=== PATIENT | male | born 1950 | race Caucasian/White ===

== ENCOUNTER 2018-09-04 21:18 | Emergency (ER) | payer MEDICARE, BC ==
[~2018-09-04] VITALS: Ht 170.2 cm; Wt 93.0 kg
--- OUTSIDE RECORDS SUMMARY | 2018-09-04 21:22 | XMS ---
PreManage Notification: DONALD GUALLPA [employer] Events No recent Security Events currently on file CRITERIA MET - [facility] There are no care providers on record at this time. Madai has no Care Guidelines for this patient. Dhara VISIT COUNT (12 MO.) 1 JANETT Hoskins TOTAL 1 NOTE: Visits indicate total known visits. ED/C VISIT TRACKING (12 MO.) 09/04/2018 21:20 JANETT Kramer OR TYPE: Emergency COMPLAINT: - LEFT KNEE PAIN/INJURY INPATIENT VISIT TRACKING (12 MO.) No inpatient visits to display in this time frame [id number]
== END 2018-09-04 23:06 | disposition home or self-care (01) ==
LOC: ED 21:18
DX: S83.92XA Sprain of unspecified site of left knee, initial encounter (principal); Z90.49 Acquired absence of other specified parts of digestive tract; Z88.5 Allergy status to narcotic agent; Z88.6 Allergy status to analgesic agent; W50.2XXA Accidental twist by another person, initial encounter
CPT/HCPCS: 73560; 99283